=== PATIENT | female | born 1985 | race Two or more races ===

== ENCOUNTER 2019-11-14 23:31 | Emergency (ER) | payer SELFPAY ==
[~2019-11-14] VITALS: Ht 152.4 cm; Wt 54.5 kg
[2019-11-14 23:31] VITALS: BP 131/81
[2019-11-15] MEDS ORDERED: SULF1TAB24 PO (00:32)
--- NOTE | 2019-11-15 00:32 | PHYS DOC ---
General Adult EDM: Chief Complaint: FINGER INJURY HPI: HPI: Patient is a 34 year old female who presents with ring that has been stuck on her left middle finger for the last 3 weeks. She states that after putting it on, she noticed that she was unable to remove it and swelling has progressively gotten worse. She rates pain is moderate. She denies loss of sensation to the affected finger. [] Review of Systems: Review of Systems: Constitutional: Denies fever or chills. [] Respiratory: Denies cough or shortness of breath. [] Cardiovascular: Denies chest pain or edema. [] Musculoskeletal: Positive left middle finger swelling and pain. [] Integument: Positive redness to left middle finger. [] Heart Score: Risk Factors: Risk Factors: DM, Current or recent (<one month) smoker, HTN, HLP, family history of CAD, obesity. Risk Scores: Score 0 - 3: 2.5% MACE over next 6 weeks - Discharge Home Score 4 - 6: 20.3% MACE over next 6 weeks - Admit for Clinical Observation Score 7 - 10: 72.7% MACE over next 6 weeks - Early Invasive Strategies Physical Exam: PE: Constitutional: Well developed, well nourished, no acute distress, non-toxic appearance. [] Cardiovascular: Regular rate and rhythm [] Lungs & Thorax: Bilateral breath sounds clear to auscultation [] Skin: Warm, dry, with redness and swelling to the left middle finger, surrounding ring. [] Extremities: Findings as noted above. [] EKG: EKG: [] Radiology/Procedures: Radiology/Procedures: [] Course & Med Decision Making: Course & Med Decision Making Pertinent Labs and Imaging studies reviewed. (See chart for details) Ring was removed with ring cutter by KATHY Dutta Disclaimer: Luzmaria Disclaimer: This electronic medical record was generated, in whole or in part, using a voice recognition dictation system. Departure Departure Impression: Primary Impression: Ring or other jewelry causing external constriction, initial encounter Disposition: HOME, SELF-CARE Condition: STABLE Referrals: NO PCP (PCP) Patient Instructions: Cellulitis Scripts Sulfamethoxazole/Trimethoprim (BACTRIM DS TABLET) 1 Each Tablet 1 TAB PO BID for 10 Days, #20 TAB 0 Refills Prov: TRINIDAD ROBLERO Jr. DO 11/15/19 TRINIDAD ROBLERO Jr. DO November 15, 2019 00:32
[2019-11-15] MEDS ORDERED: SMZ/TMP 800/160MG TABLET. PO ONE (01:00)
== END 2019-11-15 01:00 | disposition home or self-care (01) ==
LOC: ER 23:31
DX: S60.442A External constriction of right middle finger, initial encounter (principal); W49.04XA Ring or other jewelry causing external constriction, initial encounter; Y93.89 Activity, other specified; Y92.89 Other specified places as the place of occurrence of the external cause; Y99.8 Other external cause status
CPT/HCPCS: 99284